=== PATIENT | female | born 1935 | race Caucasian/White ===

== ENCOUNTER → 2020-05-01 | Outpatient (CLI) | payer MEDICARE | END | disposition home or self-care (01) | LOC: RAH 14:03 | PROVIDERS: ATTEND Internal Medicine | DX: M47.817 Spondylosis without myelopathy or radiculopathy, lumbosacral region (principal); M16.11 Unilateral primary osteoarthritis, right hip; I67.2 Cerebral atherosclerosis; M85.88 Other specified disorders of bone density and structure, other site; M25.551 Pain in right hip; D75.1 Secondary polycythemia; M25.50 Pain in unspecified joint; M54.5 Low back pain; D25.9 Leiomyoma of uterus, unspecified | CPT/HCPCS: 72100; 73502 ==

== ENCOUNTER → 2020-05-02 | Outpatient (CLI) | payer MEDICARE | END | disposition home or self-care (01) | LOC: RAH 10:35 | PROVIDERS: ATTEND Internal Medicine | DX: D75.1 Secondary polycythemia (principal); R39.198 Other difficulties with micturition; M25.551 Pain in right hip; M25.50 Pain in unspecified joint | CPT/HCPCS: 76857 ==